=== PATIENT | female | born 1980 | race African-American/Black ===

== ENCOUNTER 2017-05-18 09:26 | Emergency (ER) | payer SELFPAY ==
[2017-05-18 09:34] VITALS: BP 133/82; BMI 22.1
--- NOTE | 2017-05-18 10:08 | DR.GENAD ---
HPI - PCP Primary Care Physician: [email or web address] - HPI Comment HPI Comment: HISTORY BELOW. - Complaint/Symptoms Chief Complaint Doctors Comments: LUPUS FLARE UP. SKIN LESIONS HURTING. SUN LIGHT AGGREVATING SKIN LESIONS. LEFT HER MED IN HER HOME IN [place] BUT WILL BE BACK HOME ON SUNDAY. NO FEVER. NO CHEST PAIN OR SOB. SKIN ITCHING. BENADYL SHE NORMALLY TAKE MAKE HER SLEEPY. Chief Complaint:: patient stated she has been living in [place] for 2 years. she came here visiting 1 month ago and she left her lupus in [place]. she stated she needs her steriod - Nurses notes reviewed Nurses Notes Review: Yes - Source History Provided: Patient - Mode of Arrival Mode of Arrival: Ambulatory - Timing Onset of Chief Complaint: 05/15/17 Came on: Gradually - Duration Duration: Constant Duration: Days - Severity Severity: Moderate PMH - PMH Past Medical History: No Past Medical History: Hypertension Past Surgical History: Yes Surgical History: Unknown - Family History History of Family Medical Conditions: Yes Family Medical History: Diabetes Mellitus, Coronary Artery Disease, Hypertension - Social History Does patient currently use any type of tobacco product: No Have you used tobacco products in the last 12 months: No Type of Tobacco Use: None Does any household member use tobacco: No Alcohol Use: None Do you use any recreational Drugs:: No Lives With: Family Lives Where: Home - infectious screening In the last 2 months have you had wt loss of >10#?: NO Have you had fever, night sweats or hemotysis?: No Have you traveled outside the country in the last 6 months?: No Isolation: Standard ROS - Review of Systems Constitutional: No Symptoms Reported Eyes: No Symptoms Reported ENTM: No Symptoms Reported Respiratoy: No Symptoms Reported Cardiovascular: No Symptoms Reported Gastrointestinal/Abdominal: No Symptoms Reported Genitourinary: No Symptoms Reported Neurological: No Symptoms Reported Musculoskeletal: Joint Pain, Joint Swelling, Muscle Pain Integumentary: Change in Color, Lesions, Rash Hematologic/Lymphatic: Swollen Glands (LT SUBMANDIBULAR AND PERIAURICULAR NODE PAINFUL.) Endocrine: No Symptoms Reported All Other Systems: Reviewed and Negative PE - Vital Signs Vitals: Temperature 98.6 F Pulse Rate 86 Respiratory Rate 16 Blood Pressure [Standing] 113/64 Blood Pressure [Sitting] 116/63 Blood Pressure [Lying] 111/60 Blood Pressure 133/82 O2 Sat by Pulse Oximetry 100 - General Limitations: No Limitations General Appearance: Alert - Head Head Exam: Normal Inspection - Eyes Eye exam: Normal Appearance - ENT ENT Exam: Normal External Ear Exam External Ear Exam: Normal External Inspection TM/Canal Exam: Bilateral Normal Nose Exam: Normal Nose Exam Mouth Exam: Normal Inspection Throat Exam: Normal Inspection - Neck Neck Exam: Trachea Midline, Other (TENDERNESS NODES BELOW LEFT EAR.) - Chest Chest Inspection: Symmetric Chest Wall Rise - Respiratory Respiratory Exam: Normal Lung Sounds Bilat Respiratory Exam: Bilateral Clear to Auscultation - Cardiovascular Cardiovascular Exam: Regular Rate, Normal Rhythm, Normal Heart Sounds - Abdominal Exam Abdominal Exam: Normal Bowel Sounds, Soft. negative: Tenderness - Extremities Extremities Exam: Joint Swelling - Back Back Exam: Normal Inspection - Neurologic Neurological Exam: Alert, Oriented X3 - Skin Skin Exam: Erythema, Other (GENERALIZE SKIN LESIONS. ) MDM - Differential Diagnosis Differential Diagnosis: LUPUS/SLE Course - Treatment Treatment: SEE ORDERS. - Education/Counseling Education/Counseling: Patient, Education Educated On: Diagnosis, Needs for Follow Up - Diagnosis Discharge Problem: Lupus Qualifiers: Lupus erythematosus form: systemic Systemic lupus erythematosus type: unspecified Systemic lupus erythematosus organ involvement: other Qualified Code (s): M32.19 - Other organ or system involvement in systemic lupus erythematosus - Discharge Plan Disposition: 01 HOME, SELF-CARE Condition: Stable Prescriptions: Hydroxyzine Pamoate [Vistaril] 25 - 50 mg PO TID PRN #30 cap PRN Reason: Prednisone [Prednisone Tab 10 mg] 10 mg PO QAM #7 tab - Follow ups/Referrals Follow ups/Referrals: [facility],None [Primary Care Provider] - 3 days - Instructions Instructions: Systemic Lupus Erythematosus, Adult Additional Instructions: RETURN TO ED IF WORSE.
[2017-05-18] MEDS ORDERED: DECADRON INJ IM ONE (10:19)
[2017-05-18] MEDS ORDERED: VISTARIL PO ONE ×2 (10:20→10:45)
[2017-05-18] MEDS ORDERED: DECADRON INJ ONE (10:45)
== END 2017-05-18 11:27 | disposition home or self-care (01) ==
LOC: ER 09:55
DX: M32.19 Other organ or system involvement in systemic lupus erythematosus (principal)
CPT/HCPCS: 96372; 99282; Q0177; J1100